=== PATIENT | female | born 1940 | race Caucasian/White ===

== ENCOUNTER 2016-03-17 06:00 | Outpatient (CLI) | payer MEDICARE, OTHER ==
[~2016-03-17] VITALS: Ht 175.3 cm; Wt 86.4 kg
[~2016-03-17 06:00] MED LIST: ACET-77 PO; ACET1TAB43 PO; ALPR0.254 PO; AMOX500C2 PO; APIX5TAB PO; ASPI-983 PO; ATEN50TA PO; ATOR10TA66 PO; BACL10TA PO; CEFU500T PO; CHOL20003 PO; CLOP75TA28 PO; CLOP75TA69 PO; DIAZ5TAB3 PO; ENOX40DI8 SC; FENO145T20 PO; GABA-488 PO; LOPE2CAP PO; LOSA1TAB19 PO; LOSA25TA21 PO; MECL-106 PO; OSLT75C PO; POTA10TA36 PO; SULF500T7 PO; TRAM50TA2 PO; VITA1TAB17 PO
--- OUTSIDE RECORDS SUMMARY | 2016-03-17 06:03 | XMS REPORT | Continuity of Care Document ---
Author Author [facility] Organization [facility] Address Unknown Phone Unavailable Care Team Providers Care Change Person Name Role Phone Zoila De Leon PCP Unavailable Source Comments Some departments are not documenting in the electronic medical record. If you do not see the information that you expected, contact Release of Information in the Health Information Management department at [phone] for further assistance in locating additional records.[facility] Active Allergies and Adverse Reactions No Known Allergies Current Medications Prescription Sig. Disp. Refills Start End Date Status Date atenolol (TENORMIN) 25 mg Take 50 mg by mouth twice Active PO tablet daily. Cholecalciferol (Vitamin Take 1 Tab by mouth Active D3) (VITAMIN D-3) 2,000 daily. unit PO Tab losartan/hydrochlorothiaz Take 1 Dose by mouth Active aditya (HYZAAR) 100/12.5 mg once. tablet 1 Dose gabapentin (NEURONTIN) TAKE ONE CAPSULE BY MOUTH 90 Cap 3 10/20/19 Active 300 mg PO capsule AT BEDTIME DAILY 11 niacin 500 mg tablet Take 500 mg by mouth Active daily. FENOFIBRATE Take 145 mg by mouth Active NANOCRYSTALLIZED (TRICOR daily. PO) VITAMIN B COMPLEX (B Take 1 Tab by mouth Active COMPLEX 1 PO) daily. meloxicam (MOBIC) 15 mg TAKE ONE TABLET BY MOUTH 30 Tab 3 04/07/19 Active tablet EVERY DAY 12 baclofen (LIORESAL) 10 mg TAKE ONE TABLET BY MOUTH 90 Tab 3 05/04/19 Active tablet THREE TIMES DAILY 12 traMADol (ULTRAM) 50 mg TAKE ONE TABLET BY MOUTH 90 Tab 3 06/02/19 Active tablet THREE TIMES DAILY 12 cyclobenzaprine Take 10 mg by mouth at Active (FLEXERIL) 10 mg tablet bedtime daily. sulfaSALAzine TAKE TWO TABLETS BY MOUTH 120 Tab 3 07/07/19 Active (AZULFIDINE) 500 mg TWICE DAILY 12 tablet acetaminophen/codeine TAKE ONE TO TWO TABLETS 120 Tab 0 07/27/19 Active (TYLENOL NO.3) 300/30 mg BY MOUTH EVERY 6 HOURS 12 tablet NEEDED FOR PAIN Active Problems Problem Noted Date Thumb pain 12/21/2010 Osteoarthritis 12/21/2010 Social History Tobacco Use Types Packs/Day Years Used Date Never Smoker Alcohol Use Drinks/Week oz/Week Comments No Last Filed Vital Signs Vital Sign Reading Time Taken Blood Pressure 147/93 06/17/2011 8:08 AM CDT Pulse 71 06/17/2011 8:08 AM CDT Temperature 36 C (96.8 F) 06/17/2011 8:04 AM CDT Respiratory Rate 18 06/17/2011 8:04 AM CDT Height 1.702 m (5' 7") 06/17/2011 8:04 AM CDT Weight 90.629 kg (199 lb 12.8 06/17/2011 8:04 AM CDT oz) Body Mass Index 31.29 06/17/2011 8:04 AM CDT Oxygen Saturation - - Plan of Care Health Maintenance Due Date Last Done Comments Physical (Comprehensive) 06/20/1947 Exam Pertussis Vaccine 06/20/1951 Tetanus Vaccine 1957 Colorectal Cancer 1990 Screening Shingles Vaccine 2000 Osteoporosis Screening 2005 Prevnar/Pneumovax (#1) 2005 Influenza Vaccine 10/22/2015 Results from Last 3 Months Not on file
== END 2016-03-17 14:17 ==
LOC: PREOP 06:00
PROVIDERS: ATTEND Internal Medicine
DX: Z01.818 Encounter for other preprocedural examination (principal)

== ENCOUNTER 2016-03-22 06:45 | Day surgery (SDC) | payer MEDICARE, OTHER ==
[~2016-03-22] VITALS: Ht 175.3 cm; Wt 86.4 kg
--- OUTSIDE RECORDS SUMMARY | 2016-03-22 06:49 | XMS REPORT | Continuity of Care Document ---
Author Author [facility] Organization [facility] Address Unknown Phone Unavailable Care Team Providers Care Camp Counselor Name Role Phone Zoila De Leon PCP Unavailable Source Comments Some departments are not documenting in the electronic medical record. If you do not see the information that you expected, contact Release of Information in the Health Information Management department at [phone] for further assistance in locating additional records.[facility] Active Allergies and Adverse Reactions No [...]
--- OUTSIDE RECORDS SUMMARY | 2016-03-22 06:49 | XMS REPORT | Continuity of Care Document ---
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 If you do not see the information that you expected, contact Release of Information in the Health Information Management department at [phone] for further assistance in locating additional records.[facility] Active Allergies and Adverse Reactions No [...]
--- NOTE | 2016-03-22 06:57 | Pre-Op Note & Conscious Sedat ---
Pre-Operative Progress Note H&P Reviewed The H&P was reviewed, patient examined and no changes noted. Date H&P Reviewed: Mar 22, 2016 Time H&P Reviewed: 07:15 Conscious Sedation Pre-Proced ASA Class: 2 Airway Mallampati Classification: (red devil appropriate class) I. II. III, IV Lungs Heart ASA score ASA 1: a normal healthy patient ASA 2: a patient with a mild systemic disease (mid diabetes, controlled hypertension, obesity ASA 3: a patient with a severe systemic disease that limits activity (angina , COPD, prior Myocardial infarction) ASA 4: a patient with an incapacitating disease that is a constant threat to life (CHF, renal failure) ASA 5: a moribund patient not expected to survive 24 hrs. (ruptured aneurysm) ASA 6: a declared brain patient whose organs are being harvested. For emergent operations, add the letter E after the classification Grade 2 Sedation Plan: Analgesia, Amnesia, Plan communicated to team members, Discussed options with patient/fam, Discussed risks with patient/fam Note The patient is an appropriate candidate to undergo the planned procedure, sedation, and anesthesia. The patient immediately re-assessed prior to indication. MAVIS KHAN MD Mar 22, 2016 06:57
[2016-03-22] MEDS ORDERED: D5 LR IV SOLUTION 1,000 ML IV ONE (07:07)
[2016-03-22] MEDS ORDERED: D5 LR IV SOLUTION 1,000 ML IV STA (07:09)
[2016-03-22] MEDS ORDERED: LIDOCAINE JELLY 2% (XYLOCAINE) 5 ML TUBE MM PRN (07:15)
[2016-03-22] MEDS ORDERED: fentaNYL INJECTION 100 MCG/2 ML AMP IVP PRN (07:15)
[2016-03-22] MEDS ORDERED: MIDAZOLAM 2 MG/2 ML (VERSED) VIAL IVP PRN (07:15)
[2016-03-22] MEDS ORDERED: NALOXONE 0.4 MG/ML 1 ML (NARCAN) VIAL IVP PRN (07:15)
[2016-03-22] MEDS ORDERED: HURRICAINE EXT TUBE (BENZOCAINE) XX PRN (07:15)
[2016-03-22] MEDS ORDERED: FLUMAZENIL (ROMAZICON) 0.1 MG/ML 5 ML VIAL INJ PRN (07:15)
[2016-03-22] MEDS ORDERED: fentaNYL INJECTION 100 MCG/2 ML AMP ONE (07:40)
[2016-03-22] MEDS ORDERED: MIDAZOLAM 2 MG/2 ML (VERSED) VIAL ONE (07:40)
[2016-03-22] MEDS ORDERED: HURRICAINE EXT TUBE (BENZOCAINE) ONE (07:40)
[2016-03-22 08:05] VITALS: BP 145/82
[2016-03-22 08:35] VITALS: BP_SYST 145; BP_SYST 146; BP_DIAS 82; BP_DIAS 88
[2016-03-22 08:43] VITALS: BP 158/88
--- NOTE | 2016-03-22 11:06 | PROCEDURE REPORT ---
PROCEDURE PHYSICIAN: MAVIS KHAN DATE OF PROCEDURE: 03/22/2016 INDICATION FOR THE PROCEDURE: Follow-up gastric ulcer Mrs. Jack is a 75-year-old white female undergoing surveillance EGD for follow-up of prepyloric gastric ulcer diagnosed roughly 6 weeks ago. She was H. pylori negative at that time. The patient was placed in the left lateral decubitus position. The endoscope was inserted into the oral cavity and under catheterization the esophagus was intubated. The endoscope was passed down the esophagus, through the stomach, and in second portion of duodenum. Careful dissection was made as the endoscope was withdrawn. The patient tolerated the procedure well. FINDINGS: The posterior pharynx arytenoid aperture and true and false vocal folds were unremarkable. The esophagus was unremarkable. The Z line was distinct. There is no evidence for a hiatal hernia. The previously noted prepyloric gastric ulcer has healed. There was a fair amount of retained food noted in the fundus of the stomach. No other gastric abnormalities were noted. The duodenal bulb, and second portion of the duodenum were unremarkable. ASSESSMENT: There has been healing of previously noted prepyloric gastric ulcer, indicative of a benign process. There was a fair amount of retained food in the fundus of the stomach with an otherwise unremarkable EGD suggesting some degree of underlying gastroparesis. The patient underwent EGD evaluation at 7:30; her last meal had been at 6 p.m. the night before, reporting that she had had 2 cookies at 10 p.m. Review of her medication reveals nothing that would have a significant impact on gastric motility. She has no evidence for esophagitis. We discussed trying to diminish food and fluid intake 3 or 4 hours before recumbency. Sincerely, Mavis Khan Job ID: [id number] Dictated Date: 03/22/2016 07:59:43 Engineering Production Liaison Date: 03/22/2016 10:59:34 / veronique
--- NOTE | 2016-03-25 07:25 | HISTORY AND PHYSICAL ---
DATE OF ADMISSION: 03/22/2016 DICTATING PHYSICIAN: Dr. Jiang EGD HISTORY AND PHYSICAL: Mrs. Jack is a 75-year-old white female who had undergone EGD evaluation on the 25 of January at which time she had prepyloric gastric ulcer. She was H. pylori negative and it was felt to be likely due to a combination of aspirin and Eliquis. She is here for surveillance EGD to insure healing. This presented as anemia and was silent. She has had no subsequent melena since she was started on omeprazole. Her aspirin and eloquence been continued and she has felt well. PHYSICAL EXAMINATION: Reveals well-appearing white female in no acute distress. SKIN: Skin coloration is normal. There is no evidence for pallor. Sclera are anicteric. HEENT EXAMINATION: Unremarkable. She is a Mallampati class II pharyngeal configuration. CHEST: Clear. CV: Revealed a regular rate and rhythm without murmur, S3 or S4. ABDOMEN: Soft, supple without masses, organomegaly or tenderness. EXTREMITIES: Reveal no cyanosis, clubbing, or edema. ASSESSMENT: For surveillance of previous prepyloric gastric ulceration, the patient was set-up for EGD on 03/22/2016. She will hold aspirin and Eliquis for 48 hours prior to the procedure in case we need to obtain biopsies. EGD was arranged and questions were answered. Sincerely, Job ID: [id number] Dictated Date: 03/14/2016 17:52:00 Sales Operations Manager Date: 03/15/2016 08:20:04/angela
== END 2016-03-22 08:35 | disposition home or self-care (01) ==
LOC: ENDO 06:45
PROVIDERS: ATTEND Internal Medicine
DX: K25.9 Gastric ulcer, unspecified as acute or chronic, without hemorrhage or perforation (principal)

== ENCOUNTER → 2017-01-23 | Outpatient (CLI) | payer MEDICARE, OTHER ==
[~2017-01-23] MED LIST changes: -LOSA1TAB19 PO; +LOSA1TAB26 PO
== END ==
LOC: CARD 12:42
PROVIDERS: ATTEND Internal Medicine Cardiovascular Disease
DX: I11.9 Hypertensive heart disease without heart failure (principal); I63.9 Cerebral infarction, unspecified; I35.1 Nonrheumatic aortic (valve) insufficiency; E78.2 Mixed hyperlipidemia
CPT/HCPCS: 93306

== ENCOUNTER → 2017-02-27 | Outpatient (CLI) | payer MEDICARE, OTHER ==
[~2017-02-27] MED LIST changes: +REGADENOSON 0.4 MG/5 ML SYR (LEXISCAN) IV ONE
[2017-02-27] MEDS: CATHETER FLUSH 10 ML SYR IV PRN ×2 (08:27→09:16)
[2017-02-27 09:14] VITALS: BP 157/107
--- NOTE | 2017-02-27 19:31 | STRESS TEST ---
DATE OF SERVICE: 02/27/2017 LEXISCAN MYOVIEW STRESS TEST REPORT Baseline heart rate is 74. Baseline blood pressure 157/107. Baseline EKG is sinus rhythm with right bundle branch block. In summary, the patient received 10.94 mCi of technetium-99 Myoview and the resting images were obtained. Then, the patient received 0.4 mg of Lexiscan followed by 31.4 mCi of technetium-99 Myoview. Throughout the test, there were no EKG changes. The resting and stress images were reviewed and compared in the short axis, horizontal long axis, and vertical long axis views. Review of the images showed breast attenuation affecting the quality of the images. There is questionable mild decrease uptake at the mid to apical anterior wall with mild reversibility. SSS is 6, SDS 5, TID value 1.03. On the gated images, the left ventricle appeared to be normal size with normal contractility. Calculated ejection fraction 79%. CONCLUSION: 1. The patient tolerated Lexiscan well. 2. Breast attenuation affecting the quality of the images with questionable mild decreased uptake at the mid to apical anterior wall with mild reversibility. 3. Normal left ventricular size with normal contractility. Calculated ejection fraction 79%. Job ID: [id number] DocumentID: [id number] Dictated Date: 02/27/2017 12:17:38 Ux Lead Date: 02/27/2017 18:58:08 Dictated By: CINDY TOLENTINO MD
== END ==
LOC: CARD 08:05
PROVIDERS: ATTEND Internal Medicine Cardiovascular Disease
DX: I11.9 Hypertensive heart disease without heart failure (principal); I63.9 Cerebral infarction, unspecified; I35.1 Nonrheumatic aortic (valve) insufficiency; E78.2 Mixed hyperlipidemia
CPT/HCPCS: 78452; 93017

== ENCOUNTER → 2018-08-13 | Outpatient (CLI) | payer MEDICARE, OTHER ==
[~2018-08-13] MED LIST changes: -FENO145T20 PO; +FENO145T37 PO; -LOSA25TA21 PO; +LOSA25TA41 PO; -REGADENOSON 0.4 MG/5 ML SYR (LEXISCAN) IV ONE
== END ==
LOC: CARD 13:22
PROVIDERS: ATTEND Internal Medicine Cardiovascular Disease
DX: I11.9 Hypertensive heart disease without heart failure (principal); E78.5 Hyperlipidemia, unspecified; I08.3 Combined rheumatic disorders of mitral, aortic and tricuspid valves
CPT/HCPCS: 93306

== ENCOUNTER → 2021-06-08 | Outpatient (CLI) | payer MEDICARE, OTHER ==
[~2021-06-08] MED LIST changes: -ACET-77 PO; +ACET-78 PO; +ALPR.25T PO; -ALPR0.254 PO; +ASPI-1238 PO; -ASPI-983 PO; -DIAZ5TAB3 PO; +DIAZ5TAB49 PO; +FENO145T26 PO; -FENO145T37 PO; -MECL-106 PO; +MECL-149 PO; -POTA10TA36 PO; +POTA10TA37 PO; +SLF500T PO; -SULF500T7 PO; -TRAM50TA2 PO; +TRM50T PO
== END ==
LOC: CARD 07:59
PROVIDERS: ATTEND Internal Medicine Cardiovascular Disease
DX: I11.9 Hypertensive heart disease without heart failure (principal); I08.0 Rheumatic disorders of both mitral and aortic valves
CPT/HCPCS: 93306

== ENCOUNTER → 2021-12-29 | Outpatient (CLI) | payer MEDICARE ==
[~2021-12-29] MED LIST changes: +ACET-11 PO; -ACET1TAB43 PO; +CATHETER FLUSH 10 ML SYR IVP PRN; +POTA-177 PO; -POTA10TA37 PO; +REGADENOSON 0.4 MG/5 ML SYR (LEXISCAN) IV ONE; +meTOprolol 5 MG/5 ML (LOPRESSOR) VIAL IV ONE; +meTOprolol 5 MG/5 ML (LOPRESSOR) VIAL ONE
[2021-12-29 08:53] VITALS: BP 113/66
--- NOTE | 2021-12-29 15:03 | Cardiology Stress Test Report ---
Stress Test Report Date of Procedure/Referring: Date of Procedure: Dec 29, 2021 PCP No,Local Physician Admitting Physician Admitting Physician: Attending Physician: Mickie Orourke Indications: A fib Baseline Heart Rate: 93 Baseline Blood Pressure: Blood Pressure Systolic: 113 Blood Pressure Diastolic: 66 Baseline Vitals Vital Signs Date Time Temp Pulse Resp B/P (MAP) Pulse Ox O2 Delivery O2 Flow Rate FiO2 12/29/21 08:53 91 113/66 (82) Baseline EKG: Baseline EKG: A fib Summary After explaining the procedure to the patient, she signed a consent and then brought to the stress nuclear laboratory. Patient received 0.4 mg Lexiscan for stress test, ECG, heart rate and blood pressure were monitored continuously. Resting and stress dose of radio tracer were injected, imaging was acquired and reviewed in short axis, horizontal long axis and vertical long axis views. TID: 1.07 SSS: 9 SDS: 9 EF: 72 1. Patient tolerated Lexiscan well 2. Baseline atrial fibrillation with intermittent ventricular pacing, patient received multiple doses of IV Lopressor after the test 3. Reversible ischemia involving the anterior wall, anterolateral wall 4. Normal left ventricular size, ejection fraction 70 to CINDY TOLENTINO MD Dec 29, 2021 15:03
== END ==
LOC: CARD 07:45
PROVIDERS: ATTEND Physician Assistant
DX: I48.0 Paroxysmal atrial fibrillation (principal); I25.9 Chronic ischemic heart disease, unspecified
CPT/HCPCS: 78452; 93017; A9502

== ENCOUNTER 2022-01-05 08:41 | Day surgery (SDC) | payer MEDICARE ==
[~2022-01-05] VITALS: Ht 175.3 cm; Wt 101.8 kg
[2022-01-05] VITALS (11 sets, daily range): BP systolic 109–135; BP diastolic 59–81
[~2022-01-05 08:41] MED LIST changes: -CATHETER FLUSH 10 ML SYR IVP PRN; -REGADENOSON 0.4 MG/5 ML SYR (LEXISCAN) IV ONE; -meTOprolol 5 MG/5 ML (LOPRESSOR) VIAL IV ONE; -meTOprolol 5 MG/5 ML (LOPRESSOR) VIAL ONE
[2022-01-05] MEDS ORDERED: LIDOCAINE 1% INJ 30 ML (XYLOCAINE) VIAL ONE (08:47)
[2022-01-05] MEDS ORDERED: NS IV 1000 ML 1,000 ML ONE (08:48)
[2022-01-05] MEDS ORDERED: HEParin (CATH LAB) 2,000 ML IV ONE (08:48)
[2022-01-05] MEDS ORDERED: NS IV 1000 ML 1,000 ML IV SCH ×2 (09:00→12:00)
--- NOTE | 2022-01-05 09:12 | Diagnostic Imaging Report ---
INDICATION: Abnormal stress test COMPARISON: 01/19/2016 TECHNIQUE: Single radiograph chest dated 01/05/2022 FINDINGS: Pacemaker is again identified with the battery pack overlying left chest. The cardiac silhouette is within normal limits in size. No significant pulmonary vascular congestion. Minimal scarring within the left lung base. The lungs otherwise appear clear. No significant pleural effusion. No pneumothorax. No acute osseous abnormality. IMPRESSION: No acute cardiopulmonary abnormality with minimal left basilar scarring present. Dictated by: Dictated on workstation # [id number]
[2022-01-05 09:18] LABS: BILIRUBIN,URINE NEGATIVE (NEGATIVE); CLARITY,URINE CLEAR; COLOR,URINE YELLOW; GLUCOSE, URINE (UA) NEGATIVE (NEGATIVE); KETONES,URINE NEGATIVE (NEGATIVE); LEUKOCYTE ESTERASE ,URINE 1+ (NEGATIVE); NITRITE,URINE NEGATIVE (NEGATIVE); PROTEIN,URINE NEGATIVE (NEGATIVE)
[2022-01-05] MEDS ORDERED: ATOR10TA66 PO (09:18)
[2022-01-05] MEDS ORDERED: METO200T48 PO (09:18)
[2022-01-05] MEDS ORDERED: AMLO-251 PO (09:18)
[2022-01-05] MEDS ORDERED: DRON400T6 PO (09:18)
[2022-01-05] MEDS ORDERED: APIX5TAB PO (09:18)
[2022-01-05] MEDS ORDERED: HYDR25TA4 PO (09:18)
[2022-01-05] MEDS ORDERED: LOSA100T57 PO (09:18)
[2022-01-05 09:22] LABS: HEMATOCRIT 45 % (35-52); HEMOGLOBIN 15.2 g/dL (11.5-16.0); MEAN CORPUSCULAR HEMOGLOBIN 31 pg (25-34); MEAN CORPUSCULAR HGB CONC 34 g/dL (32-36); MEAN CORPUSCULAR VOLUME 91 fL (80-99); MEAN PLATELET VOLUME 10.8 fL (9.0-12.2); PLATELET COUNT 254 10^3/uL (130-400); WHITE BLOOD COUNT 7.7 10^3/uL (4.3-11.0)
[2022-01-05 09:23] LABS: BACTERIA,URINE FEW /HPF; SQUAMOUS EPITHELIAL CELL,UR RARE /HPF
[2022-01-05 09:28] LABS: INR 1.1 (0.8-1.4); POTASSIUM 3.3 MMOL/L (3.6-5.0); PROTHROMBIN TIME PATIENT 14.6 SEC (12.2-14.7)
[2022-01-05 09:29] LABS: CALCIUM 9.5 MG/DL (8.5-10.1)
[2022-01-05 09:30] LABS: TOTAL PROTEIN 7.5 GM/DL (6.4-8.2)
[2022-01-05 09:32] LABS: BILIRUBIN,TOTAL 0.8 MG/DL (0.1-1.0)
[2022-01-05 09:34] LABS: CREATININE SERUM 0.99 MG/DL (0.60-1.30)
--- NOTE | 2022-01-05 11:10 | Cardiac Procedure Note-CS/ASA ---
Pre-Procedure Note Pre-Op Procedure Note Date of Available H&P: Dec 30, 2021 Date H&P Reviewed: Jan 05, 2022 Time H&P Reviewed: 11:10 History & Physical: H&P Reviewed, Patient Examed, No changes noted Pre-Operative Diagnosis: CAD Conscious Sedation Pre-Proced Time 11:10 ASA Score 3 For ASA 3 and 4: Consider anesthesia and medical clearance. Also, for patients with a history of failed moderate sedation consider anesthesia. Airway Lungs Heart ASA score ASA 1: a normal healthy patient ASA 2: a patient with a mild systemic disease (mid diabetes, controlled hypertension, obesity ASA 3: a patient with a severe systemic disease that limits activity (angina, COPD, prior Myocardial infarction) ASA 4: a patient with an incapacitating disease that is a constant threat to life (CHF, renal failure) ASA 5: a moribund patient not expected to survive 24 hrs. (ruptured aneurysm) ASA 6: a declared brain- patient whose organs are being harvested. For emergent operations, add the letter E after the classification Mallampati Classification Grade 3 Sedation Plan Analgesia, Amnesia, Plan communicated to team members, Discussed options with patient/fam, Discussed risks with patient/fam The patient is an appropriate candidate to undergo the planned procedure, sedation, and anesthesia. The patient immediately re-assessed prior to indication. CINDY TOLENTINO MD Jan 05, 2022 11:10
[2022-01-05] MEDS ORDERED: MIDAZOLAM 5 MG/5 ML (VERSED) VIAL ONE (11:13)
[2022-01-05] MEDS ORDERED: fentaNYL INJ 100 MCG/2 ML AMP ONE (11:13)
--- NOTE | 2022-01-05 11:55 | Discharge Inst-Post CATH ---
Discharge Inst-CATH/EP Problems Reviewed?: Yes Post Cardiac Cath/EP D/C Inst Follow Up/Plan Appointment with Dr. Cruz's office in 2 to 4 weeks <b>CARDIAC CATH/EP PROCEDURE DISCHARGE INSTRUCTIONS</b> ACTIVITY * Go Home directly and rest. * Limit activity of the leg (or wrist if it was used) for 7 days including aer obics, swimming, jogging, bicycling, etc. * Restrict stair-climbing for 7 days if possible, if not, climb up with your non-cath leg, then bring together on the same step. * Avoid lifting, pushing, pulling or excessive movement of the affected extremi ty for 7 days. * Customary sexual activity may be resumed after 2 days-use caution not to use a position that strains or causes pain to the affected extremity. * No driving for 24 hours. * NO SMOKING. * Avoid straining for bowel movements for 7 days. * Gentle walking on level ground is allowed. * Returning to work will depend on the type of procedure and the results. Your doctor will discuss this with you. CALL YOUR DOCTOR FOR ANY OF THE FOLLOWING: *If bleeding from the puncture site occurs- Apply gentle pressure to site with clean cloth and call your doctor or EMS. * If a knot or lump forms under the skin, increases in size, or causes pain. * If bruising appears to be worsening or moving further down your leg instead of disappearing. * Temperature above 101 F. CARE OF YOUR GROIN INCISION; * Bruising or purple discoloration of the skin near the puncture site is common. * You may shower only, no bathtub bathing for 5 days. Be careful to avoid slipping as your leg may feel stiff. * If a closure device was used on your femoral artery, please see the attached guide regarding care of the device and your leg. * Leave dressing on FOR 24 hours. CARE OF YOUR WRIST INCISION; * Bruising or purple discoloration of the skin near the puncture site is common. * You may shower. * DO NOT submerge wrist. * Leave dressing on FOR 24 hours. CINDY CRUZ MD Jan 05, 2022 11:55
--- NOTE | 2022-01-05 11:59 | Cardiac Cath Report ---
Cardiac Cath Report Physician (s)/Manufacture Specialist (s) Physician CINDY TOLENTINO MD Pre-Procedure Diagnosis Pre-Procedure Diagnosis: CAD Post-Procedure Note Procedure Start Date: Jan 05, 2022 Name of Procedure: Left heart catheterization Findings/Procedure Note PROCEDURE NOTE: 81 years old lady with history of hypertension, hyperlipidemia, had an abnormal stress test, scheduled for cardiac catheterization possible PTCA. After explaining the procedure to the patient, all pros and cons were explained, all questions were answered. The patient signed the consent and then she was placed on the cardiac catheterization laboratory. Groin was prepped SL fashion local anesthesia was used. Sheath placed in the right femoral artery. Ramona right and left catheter were used to access the coronary system. Ramona right was prolapsed to the left ventricular cavity, pressure was measured, pullback LV to aorta was done. At the end of the procedure the sheath was removed. Closure device was deployed FINDINGS: Hemodynamics LV 107/13, end-diastolic pressure of 13 Aorta 106/56 mean of 80 ANATOMY: Left Main is free of obstructive disease Left Anterior Descending is moderate in size with no significant obstructive disease Left Circumflex is a small artery, nondominant artery with no obstructive disease Right Coronary Artery is large dominant artery with no obstructive disease LV Gram was not done, pressure was measured CONCLUSION: 1. Dominant right coronary artery, large artery, no significant obstructive disease. Overall mild coronary artery disease nonobstructive disease 2. Normal left ventricular end-diastolic pressure DISCUSSION AND RECOMMENDATION: Abnormal stress test is probably due to extracardiac attenuation, medical therapy is recommended Anesthesia Type: Conscious Sedation Estimated blood loss (mL): 10 ml Contrast Amount: 38 ml Total Radiation Dose: 255 mGy Post-Procedure Diagnosis Post-operative diagnosis: Chest pain Coronary artery disease Hypertension Hyperlipidemia CINDY TOLENTINO MD Jan 05, 2022 11:59
[2022-01-05] MEDS ORDERED: PATIENT MAY USE OWN MEDS, ALL PO SCH (12:00)
== END 2022-01-05 16:30 ==
LOC: CATH 08:41 → SDC 12:09 → CATH 16:30
PROVIDERS: ATTEND Internal Medicine Cardiovascular Disease
DX: I25.10 Atherosclerotic heart disease of native coronary artery without angina pectoris (principal); I48.0 Paroxysmal atrial fibrillation; I11.9 Hypertensive heart disease without heart failure; E78.2 Mixed hyperlipidemia; I65.23 Occlusion and stenosis of bilateral carotid arteries; I08.0 Rheumatic disorders of both mitral and aortic valves; Z86.73 Personal history of transient ischemic attack (TIA), and cerebral infarction without residual deficits; Z79.899 Other long term (current) drug therapy; Z79.01 Long term (current) use of anticoagulants
CPT/HCPCS: 71045; 80053; 81000; 85027; 85610; 85730; 87077; 87081; 87088; 87186; 93005; 93458; C1760; 36415